=== PATIENT | female | born 1935 | race Caucasian/White ===

== ENCOUNTER 2016-03-19 15:59 | Emergency (ER) | payer MEDICARE, SELFPAY ==
--- NOTE | 2016-03-19 17:17 | PICIS ---
[facility] EMERGENCY RECORD TRIAGE (16:07 CJEF) TRIAGE NOTES: PT BROUGHT INTO ED BY EMS AFTER SUSTAINING A [facility] [place] [facility] [employer]. PT STATES THAT SHE WAS ATTEMPTING TO SIT IN A CHAIR WHEN SHE FELL OVER BACKWARDS AND HIT HER HEAD. PT WITH A LACERATION TO THE POSTERIOR HEAD. PT DENIES ANY HEAD, BACK, OR NECK PAIN. NO LOC. (16:07 CJEF) PATIENT: NAME: Sherri Oro, AGE: 80, GENDER: female, : Sun 1935, TIME OF GREET: Sat Mar 19, 2016 15:59, PREFERRED LANGUAGE: Algerian, ETHNICITY: Not or , ECODE BILLING MAP: [facility], SSN: [id number], Zip Code: [address], KG WEIGHT: 77.11, PHONE: , , , PERSON ID: [id number], PCP: MD Chiu Grover. (16:07 CJEF) COMPLAINT: FALL. (16:07 CJEF) ADMISSION: URGENCY: 3 Urgent, ADMISSION SOURCE: Other, TRANSPORT: AMBULANCE - [facility], BED: TRIAGE. (16:07 CJEF) ASSESSMENT: Assessment: S/P FALL, LACERATION TO POSTERIOR HEAD. (16:09 CJEF) PAIN: No complaint of pain, Location DENIES PAIN. (16:09 CJEF) IMMUNIZATIONS: Flu vaccine up to date, Tetanus immunization up to date, Pneumococcal vaccine up to date. (16:09 CJEF) SIRS SCORING: Heart Rate 55-109 (0), Temp range 96.8-101.1 (0), respiratory rate 12-24 (0), Mental Status altered: no (0), Infection or Suspected Infection: No. (16:09 CJEF) TRIAGE SCREENING: Patient denies suicidal ideation, Patient denies presence of domestic violence. (16:09 CJEF) LMP: LMP: Hysterectomy. (16:09 CJEF) TREATMENTS IN PROGRESS: See EMS Record. (16:09 CJEF) PROVIDERS: TRIAGE NURSE: Norma Meza RN. (16:07 CJEF) VITAL SIGNS: BP 137/75, Pulse 74, Resp 18, Temp 98.1, (Tympanic), Pain 0, O2 Sat 96, on Room Air, Time 03/19/2016 16:05. (16:05 CJEF) KNOWN ALLERGIES NKDA CURRENT MEDICATIONS (16:10 CJEF) "MEMORY PILL" aspirin: TABLET : Strength - 81 mg : ORAL Patient Dose: mg Oral. B Complex-Vitamin B12: TABLET : ORAL Patient Dose: Unknown. Vitamin C: TABLET : Strength - 100 mg : ORAL Patient Dose: Unknown. VITAL SIGNS VITAL SIGNS: BP: 137/75, Pulse: 74, Resp: 18, Temp: 98.1 &a-1R&a+25V*p+0X*e6293M*c202B*c15G*c2P*p-0X&a-25V&a+1R Name: Sherri Oro : 1935 F80 MedRec: [id number] AcctNum: [id number] Prepared: Sat Mar 19, 2016 17:29 by Interface Page 1 of 7 pMD [facility] EMERGENCY RECORD (Tympanic), Pain: 0, O2 sat: 96 on Room Air, Time: 03/19/2016 16:05. (16:05 CJEF) BP: 137/69, Pulse: 74, Resp: 14, Pain: 0, O2 sat: 97 on Room Air, Time: 03/19/2016 16:40. (16:40 CJEF) BP: 141/61, Pulse: 73, Resp: 20, O2 sat: 97 on Room Air, Time: 03/19/2016 16:54. (16:54 CJEF) NURSING ASSESSMENT: FALL RISK (16:21 CJEF) FALL RISK: Fall risk assessment findings include: History of falls (5), No bed rest greater than 2 days (0), No use of level of consciousness altering agents with mentation or cognitive changes (0), No change in blood pressure (0), Sensory deficits (1), Impaired mobility (3), Neurologic diagnosis (3), No elimination problems (0), No confusion (0), Total score 12, No risk for fall. [facility] assessment findings include patient not confused, disoriented or impulsive, not symptomatic or depressed, no altered elimination, no dizziness or vertigo, female, no antiepileptics (anticonvulsants) administered, no Benzodiazepines administered, Pushes up, successful in one attempt(1), Total score 1, Score less than 5. Patient not high risk for falls. NURSING ASSESSMENT: SKIN (16:39 [facility]) CONSTITUTIONAL: Complex assessment performed, Patient arrives, via [facility], Gait steady, History obtained from patient, Patient appears comfortable, Patient cooperative, Patient alert, Oriented to person, place and time, Skin warm, Skin dry, Skin normal in color, Mucous membranes pink, Mucous membranes moist, Patient is well-groomed, PT BROUGHT INTO ED BY EMS AFTER SUSTAINING A FALL AT THE [employer]. PT STATES THAT SHE WAS ATTEMPTING TO SIT IN A CHAIR WHEN SHE FELL OVER BACKWARDS AND HIT HER HEAD. PT WITH A LACERATION TO THE POSTERIOR HEAD. PT DENIES ANY HEAD, BACK, OR NECK PAIN. NO LOC. PT WITH APPROX 3 CM LAC TO POSTERIOR HEAD IN THE SHAPE OF A "Y". PAIN: Patient rates pain as 0 out of 10. SKIN: Skin assessment findings include skin warm, Skin dry, Skin normal in color, Inspection findings include laceration, to POSTERIOR HEAD, length (cm) 3, bleeding controlled, "Y"-SHAPED. BLANCA SCALE: (3) Sensory perception slightly limited, (3) Skin is occasionally moist, (3) Patient walks occasionally, (3) Slightly limited mobility, (3) Adequate nutrition, (3) Patient has no apparent problem moving, Blanca Risk Total: 18. NOTES: Patient tolerated procedure well. SAFETY: Side rails up, Cart/Stretcher in lowest position, Family at bedside, Call light within reach, Hospital ID band on. NURSING PROCEDURE: DIP LUBE OPERATOR (16:15 [facility]) &a-1R&a+25V*p+0X*g1732E*c202B*c15G*c2P*p-0X&a-25V&a+1R Name: Sherri Oro : 1935 F80 MedRec: [id number] AcctNum: [id number] Prepared: Kiran Mar 19, 2016 17:29 by Interface Page 2 of 7 pMD [facility] EMERGENCY RECORD PATIENT IDENTIFIER: Patient actively involved in identification process, Patient's identity verified by patient stating name, Patient's identity verified by patient stating date. DIP LUBE OPERATOR: Cardiac monitoring indicated for S/P FALL, Patient placed on playground monitor, Heart rate: 72, showing normal sinus rhythm, Patient placed on non-invasive blood pressure monitor, Patient placed on continuous pulse oximetry, Adult/pediatric oxisensor applied. FOLLOW-UP: After procedure, alarms set and on, After procedure, patient tolerating monitoring. NOTES: Patient tolerated procedure well. SAFETY: Side rails up, Cart/Stretcher in lowest position, Family at bedside, Call light within reach, Hospital ID band on. NURSING PROCEDURE: DISCHARGE NOTE (17:02 [facility]) DISCHARGE: Patient discharged to home, ambulating without assistance, family driving, accompanied by other family member, Summary of Care printed/ provided, Patient requested and was provided an electronic copy of Discharge Instructions, Transition record given to patient, Discharge instructions given to patient, Discharge instructions given to SON, Simple or moderate discharge teaching performed, Above person(s) verbalized understanding of discharge instructions and follow-up care, Patient treated and evaluated by physician. BELONGINGS: Belongings remain with patient. NOTES: Patient tolerated procedure well. SAFETY: Side rails up, Cart/Stretcher in lowest position, Family at bedside, Call light within reach, Hospital ID band on. NURSING PROCEDURE: NURSE NOTES NURSES NOTES: Patient in no apparent distress, Patient resting quietly, Notes: PT REPORTS THAT SHE HAS NO PAIN AND WISHES TO BE SEEN QUICKLY SO THAT [facility] [facility] PT ASKS "HOW AM I GOING TO GET BACK"?. (16:11 [facility]) Patient in no apparent distress, Patient resting quietly, Notes: FAMILY MEMBER COMES TO NURSING DESK AND STATES THAT PT DID NOT MISS HER CHAIR, AND THAT THE PT SEEMED TO HAVE "GONE OUT OF IT" JUST BEFORE SHE FELL. THIS SAME SORT OF EPISODE HAPPENED ABOUT A MONTH AGO WELL. (16:12 [facility]) Notes: DR. GUZMAN INFORMED OF WHAT FAMILY MEMBER SAID. (16:17 [facility]) NURSING PROCEDURE: WOUND CARE (16:34 [facility]) PATIENT IDENTIFIER: Patient actively involved in identification process, Patient's identity verified by patient stating name, Patient's identity verified by patient stating date. TIMEOUT: Prior to procedure, correct patient verified by, Correct procedure verified, Correct site verified, Correct equipment utilized, Physician performing procedure Dr. GUZMAN. WOUND CARE: Wound care indicated to promote healing, Wound site: &a-1R&a+25V*p+0X*x1433C*c202B*c15G*c2P*p-0X&a-25V&a+1R Name: Sherri Oro : 1935 F80 MedRec: [id number] AcctNum: [id number] Prepared: Sat Mar 19, 2016 17:29 by Interface Page 3 of 7 pMD [facility] EMERGENCY RECORD POSTERIOR HEAD, Cause of wound: FALL, Wound cleansed with normal saline, by MEGAN, Wound repaired with kriss, by MEGAN, using 1 staple gun, X8 KRISS PLACED, Last tetanus shot received less than 5 years ago. FOLLOW-UP: After procedure, simple dressing applied, Notes: NON-ADHERANT PAD PLACED AND SECURED WITH KERLEX AND COBAN. NOTES: Patient tolerated procedure well. SAFETY: Side rails up, Cart/Stretcher in lowest position, Family at bedside, Call light within reach, Hospital ID band on. ORDER DETAILS Order Name: chart element #1, Status: Active, Time: 16:34 03/19/2016, User: System, - Ordered for: MD Guzman Brian, - Entered by: PETER Meza Cassie - Kiran Mar 19, 2016 16:34, - Quantity: 1, Order Name: chart element #4, Status: Active, Time: 16:34 03/19/2016, User: System, - Ordered for: MD Guzman Brian, - Entered by: PETER Meza Cassie - Kiran Mar 19, 2016 16:34, - Quantity: 1. HPI HEAD INJURY (16:43 BGOE) CHIEF COMPLAINT: Patient presents for evaluation of head injury. HISTORIAN: History provided by patient, History provided by patient's family, History provided by patient's caregiver, Additional history obtained from EMS, [place] [facility] [employer] [place] resulting in fall and hitting posterior head. No LOC. Witness present who said patient was initially dazed and not sure about age but almost immediately regained her normal thinking patterns. patient was recently diagnosed with Aricept and dose increased. no current complaints or neuro changes. patient had episode 1 month ago after sitting for extended period of time at a and then upon standing had syncopal episode. had subsequent eval by pcp and neuro. no other changes. MECHANISM OF INJURY: Mechanism of injury fall. LOCATION: Symptoms are localized, most severe in the occipital region. TIME COURSE: Sudden onset of symptoms, Symptoms have resolved. ASSOCIATED WITH: Associated with open wounds, bleeding controlled, 0 to 1.5 cm in length, cutaneous. EXACERBATED BY: Patient's condition exacerbated by nothing. RELIEVED BY: Patient's condition relieved by time. RISK FACTORS: Intracranial bleed risk factors reviewed and considered. ROS (16:48 BGOE) NOTES: All systems reviewed, negative except as described above. &a-1R&a+25V*p+0X*m9874T*c202B*c15G*c2P*p-0X&a-25V&a+1R Name: Sherri Oro : 1935 F80 MedRec: [id number] AcctNum: [id number] Prepared: Kiran Mar 19, 2016 17:29 by Interface Page 4 of 7 pMD [facility] EMERGENCY RECORD PAST MEDICAL HISTORY MEDICAL HISTORY: No past medical history, Flu vaccine up to date, Tetanus immunization up to date, Pneumococcal vaccine up to date. (16:09 CJEF) FEMALE SURGICAL HISTORY: RIGHT HIP SX, Surgical history of hysterectomy. (16:09 CJEF) PSYCHIATRIC HISTORY: No previous psychiatric history. (16:09 CJEF) SOCIAL HISTORY: Patient denies alcohol use, Patient denies drug use, Patient has no smoking history. (16:09 CJEF) NOTES: Nursing records reviewed, Agree with nursing records, Medication list reviewed. (16:52 BGOE) PHYSICAL EXAM (16:48 BGOE) CONSTITUTIONAL: Patient afebrile, Pulse normal, Blood pressure normal, Respiratory rate normal, Patient appears non toxic, Patient appears pain free, Patient alert and oriented to person, place and time. HEAD: no Villatoro's sign, No racoon sign, No contusions, no abrasions, Lacerations, to occipital, 1x2 cm stellate lesion to posterior head. EYES: Eye exam included findings of eyelids normal to inspection, Pupils equally round and reactive to light, Extraocular muscles intact, Conjunctiva normal, Sclera normal. ENT: ENT exam normal. NECK: Neck exam included findings of normal range of motion, Trachea midline. RESPIRATORY CHEST: Respiratory and chest exam normal, Breath sounds clear. CARDIOVASCULAR: Cardiovascular exam included findings of heart rate regular rate and rhythm, Heart sounds normal. ABDOMEN FEMALE: Abdominal exam included findings of abdomen nontender, Bowel sounds normal. BACK: Back exam normal. UPPER EXTREMITY: Upper extremity exam included findings of inspection normal, Range of motion normal. LOWER EXTREMITY: Lower extremity exam included findings of inspection normal, Range of motion normal. NEURO: Neuro exam findings include patient oriented to person, place and time, Speech normal, Gait normal, Memory normal, Cranial nerves intact, Deep tendon reflexes normal, no focal motor deficits, no focal sensory deficits, no cerebellar deficits, normal neuro exam. SKIN: Skin exam included findings of skin warm, dry, and normal in color. LYMPHATIC: Lymphatic exam included findings of cervical nodes normal. PSYCHIATRIC: Psychiatric exam included findings of patient oriented to person place and time, Normal affect, Judgment normal, Insight normal. &a-1R&a+25V*p+0X*e2253T*c202B*c15G*c2P*p-0X&a-25V&a+1R Name: Sherri Oro : 1935 F80 MedRec: [id number] AcctNum: [id number] Prepared: [facility] Mar 19, 2016 17:29 by Interface Page 5 of 7 pMD [facility] EMERGENCY RECORD EVENTS TRANSFER: Triage to Emergency Triage. (Sat Mar 19, 2016 16:07 CJEF) Emergency Triage to Main ED -01. (16:11 CJEF) Removed from Emergency Main ED -01. (17:03 CJEF) EKG INTERPRETATION (16:52 BGOE) MONITOR STRIP: Monitor strip shows normal sinus rhythm, with no ectopics. O2SAT INTERPRETATION (16:52 BGOE) O2SAT: Single pulse oximetry, Oxygen saturation interpretation: Normal. DOCTOR NOTES (16:55 BGOE) TEXT: history discussed with son. no evidence of syncopal episode but patient is at risk of falling given age. son to watch patient over next 48 hours until able to be reevaluated by pcp Monday and to have wound check at that time. procedure: scalp lac cleaned and irrigated with NS. wound reapproximated with 8 kriss. patient tolerated well. no bleeding. wound dressed. PATIENT STATUS: Patient has improved since arrival to emergency department. PATIENT PLAN: The patient will be discharged, The patient will follow up with primary care physician. PROBLEM LIST No recorded problems DIAGNOSIS (16:53 BGOE) FINAL: PRIMARY: head laceration. DISPOSITION PATIENT: Disposition Type: Discharge, Disposition: *Discharge Home, Condition: Good. (16:53 BGOE) Patient left the department. (17:03 CJEF) INSTRUCTION (16:55 BGOE) DISCHARGE: LACERATION, SCALP. FOLLOWUP: [facility] [address] [place] [id number], , Follow up with Primary Care Physician in 1-2 days. SPECIAL: keep wound dressed until next Monday. wound check Monday with PCP. patient to stay with son until Monday. Tylenol as needed. PRESCRIPTION &a-1R&a+25V*p+0X*m4977A*c202B*c15G*c2P*p-0X&a-25V&a+1R Name: ShortySherri Twyla : 1935 F80 MedRec: [id number] AcctNum: [id number] Prepared: Sat Mar 19, 2016 17:29 by Interface Page 6 of 7 pMD [facility] EMERGENCY RECORD No recorded prescriptions IMAGING *DISCHARGE INSTRUCTIONS RECEIPT: Image captured from scanner. (17:03 CJEF) *SUPPLY CHARGE SHEET: Image captured from scanner. (17:04 CJEF) ADMIN (17:13 BGOE) DIGITAL SIGNATURE: MD Guzman Brian. Roe: BGOE=MD Guzman Brian CJEF=PETER Meza, Norma &a-1R&a+25V*p+0X*h1471J*c202B*c15G*c2P*p-0X&a-25V&a+1R Name: OroSherri : 1935 F80 MedRec: [id number] AcctNum: [id number] Prepared: Kiran Mar 19, 2016 17:29 by Interface Page 7 of 7 pMD [facility]
== END 2016-03-19 17:03 | disposition home or self-care (01) ==
LOC: MADERS 15:59
DX: S01.91XA Laceration without foreign body of unspecified part of head, initial encounter (principal); Z90.710 Acquired absence of both cervix and uterus; W22.8XXA Striking against or struck by other objects, initial encounter
CPT/HCPCS: 12001

== ENCOUNTER 2016-04-25 07:49 | Outpatient (CLI) | payer MEDICARE, SELFPAY ==
[2016-04-25 08:17] LABS: #Basophils 0.1 thou/uL (0.0-0.2); #Eosinphils 0.1 thou/uL (0.0-0.7); #Lymphocytes 2.5 thou/uL (1.20-3.40); #Monocytes 0.7 thou/uL (0.11-0.59); #Neutrophils 3.9 thou/uL (1.40-6.50); %Basophils 1.3 % (0.0-1.0); %Lymphocytes 34.4 % (21.0-51.0); %Monocytes 8.9 % (0.0-10.0); %Neutrophils 54.3 % (42.0-75.0); Hemoglobin 15.3 g/dL (12.0-16.0); Mean Corpuscular HGB CONC 33.7 g/dL (32.0-36.0); Mean Corpuscular Hemoglobin 30.9 pg (27.0-31.0); Mean Corpuscular Volume 91.9 fl (81.0-99.0); Mean Platelet Volume 8.7 fL (7.4-10.4); Platelet Count 230 thou/uL (130-400); RBC Distribution Width 12.7 % (11.5-14.5); Red Blood Cell (RBC) Count 4.96 mill/uL (4.20-5.40); White Blood Cell (WBC) Count 7.2 thou/uL (4.8-10.8)
[2016-04-25 10:49] LABS: Anion Gap 17 mmol/L (10-20); BUN (Urea Nitrogen) 11 mg/dL (9.8-20.1); Calc. Creatinine Clearance 0 mL/min (70-130); Calcium 8.8 mg/dL (7.8-10.44); Carbon Dioxide 25 mmol/L (23-31); Chloride 104 mmol/L (98-107); Estimated GFR-MDRD 73; Glucose 93 mg/dL (83-110); Potassium 3.7 mmol/L (3.5-5.1); Sodium 142 mmol/L (136-145)
== END 2016-04-25 07:50 ==
LOC: MADLABBHPM 07:49
PROVIDERS: ATTEND Family Medicine
DX: I95.1 Orthostatic hypotension (principal)
CPT/HCPCS: 80048; 85025

== ENCOUNTER 2016-06-07 07:38 | Outpatient (CLI) | payer MEDICARE ==
[2016-06-07 07:50] LABS: #Basophils 0.1 thou/uL (0.0-0.2); #Eosinphils 0.1 thou/uL (0.0-0.7); #Lymphocytes 2.4 thou/uL (1.20-3.40); #Monocytes 0.6 thou/uL (0.11-0.59); #Neutrophils 4.2 thou/uL (1.40-6.50); %Basophils 1.1 % (0.0-1.0); %Lymphocytes 33.3 % (21.0-51.0); %Monocytes 7.8 % (0.0-10.0); %Neutrophils 56.7 % (42.0-75.0); Hemoglobin 15.8 g/dL (12.0-16.0); Mean Corpuscular HGB CONC 33.6 g/dL (32.0-36.0); Mean Corpuscular Hemoglobin 31.3 pg (27.0-31.0); Mean Platelet Volume 8.8 fL (7.4-10.4); Platelet Count 253 thou/uL (130-400); RBC Distribution Width 12.5 % (11.5-14.5); Red Blood Cell (RBC) Count 5.04 mill/uL (4.20-5.40); White Blood Cell (WBC) Count 7.3 thou/uL (4.8-10.8)
[2016-06-07 08:10] LABS: Anion Gap 14 mmol/L (10-20); BUN (Urea Nitrogen) 15 mg/dL (9.8-20.1); Calc. Creatinine Clearance 0 mL/min (70-130); Calcium 8.7 mg/dL (7.8-10.44); Carbon Dioxide 26 mmol/L (23-31); Chloride 105 mmol/L (98-107); Estimated GFR-MDRD 67; Glucose 96 mg/dL (83-110); Potassium 3.3 mmol/L (3.5-5.1); Sodium 142 mmol/L (136-145)
== END 2016-06-07 07:39 | disposition home or self-care (01) ==
LOC: MADLABBHPM 07:38
PROVIDERS: ATTEND Family Medicine
DX: I95.1 Orthostatic hypotension (principal)
CPT/HCPCS: 36415; 80048; 85025

== ENCOUNTER 2016-09-14 07:28 | Outpatient (CLI) | payer MEDICARE ==
[2016-09-14 09:00] LABS: Anion Gap 17 mmol/L (10-20); BUN (Urea Nitrogen) 11 mg/dL (9.8-20.1); Calc. Creatinine Clearance 0 mL/min (70-130); Calcium 8.4 mg/dL (7.8-10.44); Carbon Dioxide 23 mmol/L (23-31); Chloride 104 mmol/L (98-107); Estimated GFR-MDRD 75; Glucose 92 mg/dL (83-110); Potassium 3.3 mmol/L (3.5-5.1); Sodium 141 mmol/L (136-145)
== END 2016-09-14 07:29 | disposition home or self-care (01) ==
LOC: MADLABBHPM 07:28
PROVIDERS: ATTEND Family Medicine
DX: I10 Essential (primary) hypertension (principal)
CPT/HCPCS: 36415; 80048

== ENCOUNTER 2017-05-24 12:40 | Emergency (ER) | payer MEDICARE ==
[2017-05-24 13:37] LABS: Band 1 % (5-11); Hemoglobin 15.6 g/dL (12.0-16.0); Lymphocytes 2 % (21-51); MDiff Complete? YES; Mean Corpuscular HGB CONC 33.5 g/dL (32.0-36.0); Mean Corpuscular Hemoglobin 31.4 pg (27.0-31.0); Mean Corpuscular Volume 93.6 fl (81.0-99.0); Mean Platelet Volume 8.7 fL (7.4-10.4); Monocytes 4 % (0-10); Neutrophil 91 % (42-75); PLT Morphology Comment Appears Adequate; Platelet Count 207 thou/uL (130-400); RBC Distribution Width 12.9 % (11.5-14.5); RBC Morphology Normal; Reactive Lymphocytes 2 % (0-10); Red Blood Cell (RBC) Count 4.96 mill/uL (4.20-5.40); White Blood Cell (WBC) Count 10.8 thou/uL (4.8-10.8)
[2017-05-24 13:42] LABS: ALT (SGPT) 21 U/L (8-55); AST (SGOT) 35 U/L (5-34); Albumin 4.1 g/dL (3.4-4.8); Alkaline Phosphatase 69 U/L (40-150); Anion Gap 18 mmol/L (10-20); BUN (Urea Nitrogen) 18 mg/dL (9.8-20.1); Bilirubin, Total 0.9 mg/dL (0.2-1.2); Calc. Creatinine Clearance 0 mL/min (70-130); Calcium 8.6 mg/dL (7.8-10.44); Carbon Dioxide 22 mmol/L (23-31); Chloride 102 mmol/L (98-107); Estimated GFR-MDRD 48; Globulin 3.2 g/dL (2.4-3.5); Glucose 98 mg/dL (83-110); Potassium 3.8 mmol/L (3.5-5.1); Protein, Total 7.3 g/dL (6.0-8.3); Sodium 138 mmol/L (136-145)
--- NOTE | 2017-05-24 14:02 | CT ---
CERVICAL SPINE CT WITHOUT IV CONTRAST: History: 81-year-old female with history of slip and fall in the shower with neck pain. Comparison: 03-22-14 FINDINGS: Focal disc osteophytosis noted at C5-6 with some associated canal, lateral recess, and foraminal sten osis. No evidence for acute fracture or facet dislocation. IMPRESSION: No evidence for acute fracture or facet dislocation. 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 Sinus mucosal disease with a sm all amount of fluid in the dependent portion of the right maxillary sinus. Partial opacification of t he left mastoid. POS: [facility]
--- NOTE | 2017-05-24 14:07 | CT ---
CT BRAIN WITHOUT CONTRAST: Date: 05/24/17 HISTORY: Fall. Split scalp, cut on back of head, right side. Head pain. FINDINGS: Comparison made with exam of 03/19/16. Changes of cortical atrophy and chronic small vessel ischemic disease are again seen. The ventricular size is stable and the basilar cisterns are patent. No evidence of acute infarct, hemorrhage, midlin e shift, or abnormal extra-axial fluid collections are seen. The bony calvarium is intact. There is a small amount of fluid in the right maxillary sinus. There is mild mucosal disease in the right maxil lucas sinus. There are postop changes of scleral banding in the right orbit, which was also seen on e previous study. A laceration was seen in the right posterior parietal scalp. IMPRESSION: No CT evidence of acute intracranial process. POS: [facility]
[2017-05-24 14:24] LABS: Bilirubin Negative (Negative); Blood, Urine Trace (Negative); Clarity Hazy (Clear); Glucose, Urine (Dipstick) Negative (Negative); Leukocyte Small (Negative); Nitrite Negative (Negative); Protein, Urine (Dipstick) 100 mg/dL (Neg-Trace)
[2017-05-24 14:31] LABS: RBC/HPF 0-3 HPF (0-3)
[2017-05-24 14:33] LABS: Bacteria/HPF Rare-Few HPF (None Seen); Squamous Epithelial 0-3 HPF (0-3)
[2017-05-24 14:34] LABS: Other Casts/LPF 7-10 MIXED CASTS LPF (0-3 Hyaline)
--- NOTE | 2017-05-24 15:21 | RAD ---
PA AND LATERAL CHEST: History: Cough. FINDINGS: The heart size is normal. The lungs are expanded without focal areas of consolidation, pneumothorax o r pleural effusions. There are changes of old granulomatous disease present. IMPRESSION: No radiographic evidence of acute cardiopulmonary process. POS: [facility]
== END 2017-05-24 16:13 | disposition home or self-care (01) ==
LOC: MADERS 12:40
DX: S01.01XA Laceration without foreign body of scalp, initial encounter (principal); J20.9 Acute bronchitis, unspecified; E78.5 Hyperlipidemia, unspecified; I10 Essential (primary) hypertension; F41.9 Anxiety disorder, unspecified; F32.9 Major depressive disorder, single episode, unspecified; Z79.82 Long term (current) use of aspirin; W18.2XXA Fall in (into) shower or empty bathtub, initial encounter
CPT/HCPCS: 12001; 36415; 70450; 71046; 72125; 80053; 81001; 85025; 87081; 87086; 87430

== ENCOUNTER 2021-03-10 11:01 | Emergency (ER) | payer MEDICARE | END 2021-03-10 13:39 | disposition home or self-care (01) | LOC: MADERS 11:01 | DX: S62.666A Nondisplaced fracture of distal phalanx of right little finger, initial encounter for closed fracture (principal); S43.005A Unspecified dislocation of left shoulder joint, initial encounter; E78.5 Hyperlipidemia, unspecified; E78.00 Pure hypercholesterolemia, unspecified; I10 Essential (primary) hypertension; M19.90 Unspecified osteoarthritis, unspecified site; W01.0XXA Fall on same level from slipping, tripping and stumbling without subsequent striking against object, initial encounter | CPT/HCPCS: 23650 ==